=== PATIENT | male | born 1980 | race Caucasian/White ===

== ENCOUNTER 2016-12-09 00:43 | Emergency (ER) | payer OTHER, BC ==
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
== END 2016-12-09 02:47 | disposition disaster alternative care site (69) ==
LOC: GACC 00:43
PROC: 2W3DX1Z Immobilization of Left Lower Arm using Splint (ICD-10-PCS; principal; 2016-12-09)
DX: S62.002A Unspecified fracture of navicular [scaphoid] bone of left wrist, initial encounter for closed fracture (principal); S80.01XA Contusion of right knee, initial encounter; S50.812A Abrasion of left forearm, initial encounter; S50.811A Abrasion of right forearm, initial encounter; Z88.0 Allergy status to penicillin; V29.49XA Motorcycle driver injured in collision with other motor vehicles in traffic accident, initial encounter; Y92.410 Unspecified street and highway as the place of occurrence of the external cause

== ENCOUNTER → 2016-12-09 | Outpatient (CLI) | payer OTHER, BC | END | disposition disaster alternative care site (69) | LOC: GAMB 00:29 | DX: S50.812A Abrasion of left forearm, initial encounter (principal); S50.811A Abrasion of right forearm, initial encounter; S40.812A Abrasion of left upper arm, initial encounter; S40.811A Abrasion of right upper arm, initial encounter; G89.11 Acute pain due to trauma; Z88.0 Allergy status to penicillin | CPT/HCPCS: A0425; A0429 ==